=== PATIENT | female | born 1995 | race Two or more races ===

== ENCOUNTER 2021-08-22 20:04 | Emergency (ER) | payer MEDICAID ==
[~2021-08-22] VITALS: Ht 142.2 cm; Wt 33.0 kg
[2021-08-22] MEDS ORDERED: NAPROXEN 500 MG TABLET PO STA (20:13)
[2021-08-22] MEDS ORDERED: HYDROcodone/APAP 5/325MG 1 TAB TABLET PO ONE (20:15)
--- NOTE | 2021-08-22 20:18 | PHYS DOC ---
General Adult EDM: Chief Complaint: LACERATION/AVULSION HPI: HPI: Patient is a 25 year old female who presents to the ED today with left index finger laceration, patient reports his left index finger got caught in house door. Reports she is right handed. Review of Systems: Review of Systems: Constitutional: Denies fever or chills. [] Musculoskeletal: Denies back pain or joint pain. [] Integument: left index finger naill laceration Neurologic: Denies headache, focal weakness or sensory changes. [] Psychiatric: Denies depression or anxiety. [] Heart Score: C/O Chest Pain: N/A Risk Factors: Risk Factors: DM, Current or recent (<one month) smoker, HTN, HLP, family history of CAD, obesity. Risk Scores: Score 0 - 3: 2.5% MACE over next 6 weeks - Discharge Home Score 4 - 6: 20.3% MACE over next 6 weeks - Admit for Clinical Observation Score 7 - 10: 72.7% MACE over next 6 weeks - Early Invasive Strategies Physical Exam: PE: Constitutional: Well developed, well nourished, no acute distress, non-toxic appearance. [] Skin: Left index finger nailbed is cut in half with a side still attached to the nailbed. The laceration runs to the medial aspect of the finger, total length of laceration is roughly 2 cm. From the location of this laceration there is no obvious tendon involvement. Patient able to flex and extend the finger at all the joints with no difficulties. +2 left radial pulse. Cap refill less than 2 seconds to left index fingers. Adequate radial sensation to the left index finger. Back: No tenderness, no CVA tenderness. [] Extremities: No tenderness, no cyanosis, no clubbing, ROM intact, no edema. [] Neurologic: Alert and oriented X 3, normal motor function, normal sensory function, no focal deficits noted. [] Psychologic: Affect normal, judgement normal, mood normal. [] EKG: EKG: [] Radiology/Procedures: Radiology/Procedures: []PROCEDURE: FINGER(S) LEFT Exam: Left finger 3 views INDICATION: Index finger laceration, pain TECHNIQUE: Frontal view of the left hand with oblique and lateral views of the second digit Comparisons: None FINDINGS: There is a fracture to the distal tuft of the second digit. Mild overlying soft tissue irregularity. Joint spaces are well-maintained. Bone mineralization is normal. IMPRESSION: Fracture at the distal tuft of the second digit. Electronically signed by: Sigifredo Ruiz MD (08/22/2021 8:40 PM) [facility] DICTATED and SIGNED BY: SIGIFREDO RUIZ MD DATE: 08/22/212038 Laceration/Wound Repair : [] Wound Location: Left index finger Wound's Depth, Shape: Horizontal Wound Length (cm): Proximately 2 centimeters Wound Explored: clean Irrigated w/ Saline (ccs): 200ml Betadine Prep?: Yes Anesthesia: 1% of lidocaine and 0.5% ropivacaine Volume Anesthetic (ccs): 10ml total Wound Repaired With: Vicryl Suture Size/Type: 4.0/interrupted sutures Number of Sutures: 4 Progress : Wound was covered with nonstick dressing and splinted in the ED Course & Med Decision Making: Course & Med Decision Making Pertinent Labs and Imaging studies reviewed. (See chart for details) This is a 25-year-old female patient who presents to the ED today with left index finger nail laceration that occurred today. Left index finger x-rays were noted for fracture at the distal tuft of the second digit. Tetanus is up-to-date, laceration was closed by me as noted in procedures. Patient's finger was splinted by the medical tech, neurovascular exam done by me post splinting is normal. She was given Zosyn IV in the ED, discharged on cephalexin. She was instructed to contact the orthopedic doctor tomorrow and set up a follow-up appointment Leonides Disclaimer: Leonides Disclaimer: This electronic medical record was generated, in whole or in part, using a voice recognition dictation system. Departure Departure Impression: Primary Impression: Open fracture of tuft of distal phalanx of finger Disposition: 01 HOME / SELF CARE / HOMELESS Condition: STABLE Referrals: NATALIE ACOSTA Jr. DO Please call him tomorrow morning and set up a follow-up appointment Patient Instructions: Finger Fracture Additional Instructions: You have an open fracture of the left index finger. Try to ice and elevate the finger. Please call the provided orthopedic doctor tomorrow morning and follow- up with him. You can change the dressing in 24 hours if the finger is not bleeding or draining. Please wear the splint until you are seen by the orthopedic doctor. Please take the prescribed antibiotics until completed. You can take the pain medicine as needed for pain. Come back to the ED at any point wound condition worsens or you have any other concerns Scripts Naproxen (NAPROXEN) 500 Mg Tablet 1 TAB PO BID for pain, #14 TAB 0 Refills Prov: JASIEL KNOX APRN 08/22/21 Hydrocodone Bit/Acetaminophen (HYDROCODONE-APAP 5-325 ) 1 Tab Tablet 0.5-1 TAB PO PRN Q6HRS PRN for PAIN, #14 TAB 0 Refills Prov: JASIEL KNOX APRN 08/22/21 Cephalexin (CEPHALEXIN) 500 Mg Tablet 1 TAB PO TID, #30 TAB Prov: JASIEL KNOX APRN 08/22/21 JASIEL KNOX APRN August 22, 2021 20:18
--- NOTE | 2021-08-22 20:43 | RAD ---
Exam: Left finger 3 views INDICATION: Index finger laceration, pain TECHNIQUE: Frontal view of the left hand with oblique and lateral views of the second digit Comparisons: None FINDINGS: There is a fracture to the distal tuft of the second digit. Mild overlying soft tissue irregularity. Joint spaces are well-maintained. Bone mineralization is normal. IMPRESSION: Fracture at the distal tuft of the second digit. Electronically signed by: Sigifredo Gonsales MD (08/22/2021 8:40 PM) [facility]
[2021-08-22] MEDS ORDERED: BUPIVACAINE MPF 0.5% 30 ML VIAL. INJ ONE (21:30)
[2021-08-22] MEDS ORDERED: LIDOCAINE 1% PF 2 ML VIAL. INJ ONE (21:30)
[2021-08-22] MEDS ORDERED: PIPERACILLIN/TAZOBACTAM 3.375 GM in IV NORMAL SALINE 50ML 50 ML IV ONE (21:30)
[2021-08-22] MEDS ORDERED: NAPR-514 PO (21:40)
[2021-08-22] MEDS ORDERED: HYDR-2761 PO (21:40)
[2021-08-22] MEDS ORDERED: CEPH500T PO (21:40)
[2021-08-22 21:45] VITALS: BP 124/80
== END 2021-08-22 21:45 | disposition home or self-care (01) ==
LOC: ER 20:04
DX: S62.637B Displaced fracture of distal phalanx of left little finger, initial encounter for open fracture (principal); W23.0XXA Caught, crushed, jammed, or pinched between moving objects, initial encounter; Y93.89 Activity, other specified; Y92.89 Other specified places as the place of occurrence of the external cause; Y99.8 Other external cause status
CPT/HCPCS: 29130; 73140; 96365; 99284; J2543; J3490; 29125